=== PATIENT | female | born 1935 | race Caucasian/White ===

== ENCOUNTER 2017-03-11 10:44 | Emergency (ER) | payer MEDICARE, OTHER ==
[~2017-03-11] VITALS: Ht 162.6 cm; Wt 80.6 kg
[~2017-03-11 10:44] MED LIST: ADVIL200 MG PO; ALPRAZOLAM0.25 MG PO; AMITRIPTYLINE H25 MG PO; ASPIRIN EC81 MG PO; ATENOLOL25 MG PO; CITRACAL + BON1 EACH PO; COUMADIN2.5 MG PO; COUMADIN5 MG PO; DILTIAZEM ER180 MG PO; ENALAPRIL MALEA10 MG PO; ENALAPRIL MALEA20 MG PO; FUROSEMIDE20 MG PO; GABAPENTIN300 MG PO; LASIX20 MG PO; METOPROLOL SUCC50 MG PO; NORCO 5-325 TA1 EACH PO; POLYETHYLENE G255 GM PO; POTASSIUM CHLO20 ME1 PO; SENNA LAXATIVE8.6 MG PO; TOPROL XL25 MG PO; TRAMADOL HCL50 MG PO; VITAMIN B-121000 MCG PO; VITAMIN D1000 UNI1 PO; WARFARIN SODIUM5 MG PO
== END 2017-03-11 16:10 | disposition home or self-care (01) ==
LOC: ED 10:44
DX: R19.5 Other fecal abnormalities (principal); I10 Essential (primary) hypertension; I48.91 Unspecified atrial fibrillation; Z79.01 Long term (current) use of anticoagulants; Z90.49 Acquired absence of other specified parts of digestive tract; Z88.0 Allergy status to penicillin; Z79.899 Other long term (current) drug therapy
CPT/HCPCS: 74177; 80053; 85025; 99284; Q9967

== ENCOUNTER 2017-03-27 07:36 | Day surgery (SDC) | payer MEDICARE, OTHER ==
[~2017-03-27] VITALS: Ht 162.6 cm; Wt 80.3 kg
[2017-03-27] MEDS ORDERED: ASPIR-LOW81 MG PO (08:45)
--- NOTE | 2017-03-27 09:29 | NUR ---
03/27/17 0929 Ravinder Perkins RESPONDS TO VOICE ON ENTRY TO PACU. DENIES NAUSEA OR PAIN. ORIENTED TO TIME AND SITUATION. FALLS ASLEEP EASILY.
--- NOTE | 2017-03-28 08:35 | OR ---
[facility] [address], [place] [address] Signed DATE OF PROCEDURE: 03/27/17 PREOPERATIVE DIAGNOSES Personal history of colonic polyps, 2006 (hyperplastic). Father with a history of colon cancer, age 63. History of hemorrhoids. Rectal bleeding. Change in bowel habits with decreased caliber of stool, constipation and abdominal distention. Long redundant colon. POSTOPERATIVE DIAGNOSES Long redundant colon. Beefy moderate external hemorrhoids. Moderate internal hemorrhoids. Moderate sigmoid diverticulosis. PROCEDURE: Colonoscopy without biopsy. ESTIMATED BLOOD LOSS: None. INDICATIONS Phoebe is an 82-year-old female, who has been to us previously for colonoscopy in 2010. Back at that time, she was having generalized abdominal pain, bloating, nausea, constipation with personal history of hyperplastic colonic polyps removed in 2006. In addition, her father had colon cancer at age 63. At that time, we found that she had a very long redundant colon. Back in 2010, she had her upper GI and a CT scan performed and they were all negative. More recently, she went to the emergency room because of her change in bowel habits with abdominal distention, a decrease in caliber of her stool and some rectal bleeding. Her digital rectal exam was negative, a CT scan and pelvis was negative and her laboratory work was all negative. She has 2 small lesions in her kidney, she is going to follow up with her primary care provider. She had been to her primary care provider who then asked her to come see me in consultation. In the office, I had a long discussion with Phoebe. She wanted to undergo another colonoscopy. She is very aware of colonoscopy along with its risks including but not limited to gas bloating, crampy abdominal pain, bleeding, perforation requiring surgery, and misdiagnosis. She also understands the need for IV conscious sedation. We also asked her to hold both her aspirin and Coumadin. Unfortunately, she held the Coumadin but not the aspirin. She had expressed understanding and wished to proceed. PROCEDURE NOTE Phoebe was taken into our endoscopy suite and placed in the left lateral decubitus Electronically Signed By: SHELL GARCIA MD 03/28/17 0835 PATIENT NAME: PHOEBE CINTRON OPERATIVE REPORT DATE OF : 33 PHYSICIAN: SHELL GARCIA MD REPORT #: [id number] REPORT IS CONFIDENTIAL AND NOT TO BE RELEASED WITHOUT AUTHORIZATION [facility] [address], [place] [address] Signed position. She has a history of chronic atrial fibrillation, which we could see on her monitor. She was given 4 mg of Versed and 100 mcg of Fentanyl for the procedure. A digital rectal exam was performed and she does have some moderate circumferential external beefy hemorrhoids. She has good sphincter tone. The adult colonoscope was introduced and advanced very carefully all the way into the cecum under direct visualization of came r a without difficulty. Overall, prep was good. She had some areas of particulate stool matter that I could not quite suction out completely. The scope was then slowly withdrawn. She does have moderate sigmoid diverticulosis. The scope was then retroflexed in the rectum and she does have some moderate internal hemorrhoids. After this, the gas was suctioned out and the colonoscope removed. Phoebe tolerated the procedure quite well. RECOMMENDATIONS I will see Phoebe back in my office in 7-14 days to review her results. It looks like the hemorrhoids are the source of her decrease in caliber of stool with rectal bleeding, probably exacerbated by the constipation. MD DARREN Arellano/Modl /[id number] cc: Adalberto Narayanan MD Electronically Signed By: SHELL GARCIA MD 03/28/17 0835 PATIENT NAME: PHOEBE CINTRON OPERATIVE REPORT DATE OF : 33 PHYSICIAN: SHELL GARCIA MD REPORT #: [id number] REPORT IS CONFIDENTIAL AND NOT TO BE RELEASED WITHOUT AUTHORIZATION
== END 2017-03-27 10:14 | disposition home or self-care (01) ==
LOC: OPS 07:36 → DS 07:36 → OPS 09:45
PROVIDERS: Colon & Rectal Surgery
PROC: 0DJD8ZZ Inspection of Lower Intestinal Tract, Via Natural or Artificial Opening Endoscopic (ICD-10-PCS; principal; 2017-03-27 09:45)
DX: K64.8 Other hemorrhoids (principal); K64.4 Residual hemorrhoidal skin tags; K57.30 Diverticulosis of large intestine without perforation or abscess without bleeding; F41.9 Anxiety disorder, unspecified; Z79.899 Other long term (current) drug therapy; Z88.0 Allergy status to penicillin
CPT/HCPCS: J2250; J3010; J7120

== ENCOUNTER 2020-06-06 17:31 | Emergency (ER) | payer MEDICARE, OTHER ==
[~2020-06-06] VITALS: Ht 157.5 cm; Wt 80.3 kg
[~2020-06-06 17:31] MED LIST changes: +ASPIR-LOW81 MG PO; -COUMADIN5 MG PO; +FISH OIL 1,0001 EAC5 PO; +WOMEN'S DAILY1 EACH; +WOMEN'S DAILY1 EACH PO
--- OUTSIDE RECORDS SUMMARY | 2020-06-06 17:34 | XMS ---
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 Elvira has no Care Guidelines for this patient. Yamil VISIT COUNT (12 MO.) 1 [facility] TOTAL 1 NOTE: Visits indicate total known visits. ED/C VISIT TRACKING (12 MO.) 06/06/2020 17:32 [facility] [place] TYPE: Emergency COMPLAINT: - RAPID HEART RATE INPATIENT VISIT TRACKING (12 MO.) No inpatient visits to display in this time frame [id number]
[2020-06-06] MEDS ORDERED: CARDIZEM CD120 MG PO (19:16)
--- NOTE | 2020-06-07 17:03 | EKG ---
[facility] [address] [facility] [place] [address] Signed Supraventricular tachycardia Nonspecific ST and T wave abnormality Abnormal ECG When compared with ECG of 16-FEB-2016 11:41, Sinus rhythm has replaced Atrial flutter Vent. rate has increased BY [address] now depressed in Inferior leads ST no longer elevated in Lateral leads Confirmed by DEVI SHEPARD DO ([id number]) on 06/07/2020 5:03:35 PM Electronically Signed By: DEVI SHEPARD DO 06/07/20 1703 PATIENT NAME: PHOEBE CINTRON Electrocardiogram DATE OF : 33 PHYSICIAN: DEVI SHEPARD DO REPORT #: [id number] REPORT IS CONFIDENTIAL AND NOT TO BE RELEASED WITHOUT AUTHORIZATION
--- NOTE | 2020-06-07 17:04 | EKG ---
[facility] [address] [facility] [place] [address] Signed Atrial flutter with variable AV block Nonspecific T wave abnormality Abnormal ECG When compared with ECG of 06-JUN-2020 17:37, (Unconfirmed) Atrial flutter has replaced Sinus rhythm Vent. rate has decreased BY [address] no longer depressed in Inferior leads Nonspecific T wave abnormality has replaced inverted T waves in Lateral leads Confirmed by DEVI SHEPARD DO ([id number]) on 06/07/2020 5:03:43 PM Electronically Signed By: DEVI SHEPARD DO 06/07/20 1704 PATIENT NAME: PHOEBE CINTRON Electrocardiogram DATE OF : 33 PHYSICIAN: DEVI SHEPARD DO REPORT #: [id number] REPORT IS CONFIDENTIAL AND NOT TO BE RELEASED WITHOUT AUTHORIZATION
== END 2020-06-06 19:51 | disposition home or self-care (01) ==
LOC: ED 17:31
DX: I47.1 Supraventricular tachycardia (principal); I10 Essential (primary) hypertension; I48.91 Unspecified atrial fibrillation; Z88.0 Allergy status to penicillin; Z79.899 Other long term (current) drug therapy; Z79.01 Long term (current) use of anticoagulants; Z79.82 Long term (current) use of aspirin
CPT/HCPCS: 71045; 80053; 83735; 84443; 84484; 85025; 85730; 93005; 93010; 96374; 99285-25

== ENCOUNTER 2020-06-08 09:56 | Emergency (ER) | payer MEDICARE, OTHER ==
[~2020-06-08] VITALS: Ht 157.5 cm; Wt 80.3 kg
[~2020-06-08 09:56] MED LIST changes: +CARDIZEM CD120 MG PO
--- OUTSIDE RECORDS SUMMARY | 2020-06-08 10:00 | XMS ---
PreManage Notification: PHOEBE CINTRON Security Architect Manager Events No recent Security Events currently on file CRITERIA MET - [facility] - 2 Visits in 30 Days CARE PROVIDERS MARTÍNEZ PRICE Physician Track Repairer Helper 06/07/2020-Current PHONE: [phone] Elvira has no Care Guidelines for this patient. Yamil VISIT COUNT (12 MO.) 2 [facility] TOTAL 2 NOTE: Visits indicate total known visits. ED/UCC VISIT TRACKING (12 MO.) 06/08/2020 09:57 [facility] TYPE: Emergency COMPLAINT: - RAPID HEART RATE 06/06/2020 17:32 [facility] TYPE: Emergency COMPLAINT: - RAPID HEART RATE INPATIENT VISIT TRACKING (12 MO.) No inpatient visits to display in this time frame [email or web address]
--- NOTE | 2020-06-08 18:35 | EKG ---
[facility] [address] [facility] [place], [place] [address] Signed Atrial flutter with variable AV block Abnormal ECG No previous ECGs available Confirmed by DEVI SHEPARD DO ([id number]) on 06/08/2020 6:34:55 PM Electronically Signed By: DEVI SHEPARD DO 06/08/20 1835 PATIENT NAME: PHOEBE CINTRON Electrocardiogram DATE OF : 33 PHYSICIAN: DEVI SHEPARD DO REPORT #: [id number] REPORT IS CONFIDENTIAL AND NOT TO BE RELEASED WITHOUT AUTHORIZATION
== END 2020-06-08 13:43 | disposition home or self-care (01) ==
LOC: ED 09:56
DX: I48.91 Unspecified atrial fibrillation (principal); I48.92 Unspecified atrial flutter; I10 Essential (primary) hypertension; Z88.0 Allergy status to penicillin; Z79.899 Other long term (current) drug therapy; Z79.01 Long term (current) use of anticoagulants; Z79.82 Long term (current) use of aspirin
CPT/HCPCS: 71045; 80053; 83735; 83880; 84484; 85025; 85610; 93005; 93010; 96374; 99285-25

== ENCOUNTER 2020-07-03 11:17 | Emergency (ER) | payer MEDICARE, OTHER ==
[~2020-07-03] VITALS: Ht 157.5 cm; Wt 80.3 kg
[~2020-07-03 11:17] MED LIST changes: +ALPRAZOLAM0.5 MG PO; +TRAZODONE HCL50 MG PO
--- OUTSIDE RECORDS SUMMARY | 2020-07-03 11:20 | XMS ---
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 Care History Medical/Surgical 06/09/2020 [facility] - W CONTACTED DR SAUNDERS OFFICE- PATIENT BUSINESS SUPPORT PROFESSIONAL - BUSINESS SUPPORT PROFESSIONAL IS CURRENTLY WORKING ON AN APT FOR FOLLOW UP WITH PATIENT. - CHW PROVIDED RECENT ED VISIT CHART NOTES AT PHYSICIAN REQUEST. - FURTHER FOLLOW UP WILL BE DISCUSSED WITH PATIENT. Yamil VISIT COUNT (12 MO.) 3 [facility] TOTAL 3 NOTE: Visits indicate total known visits. ED/UCC VISIT TRACKING (12 MO.) 07/03/2020 11:18 [facility] TYPE: Emergency COMPLAINT: - RAPID HEART RATE 06/08/2020 09:57 [facility] TYPE: Emergency COMPLAINT: - RAPID HEART RATE DIAGNOSES: - Other exterminator helper (current) drug therapy - exterminator helper (current) use of aspirin - Allergy status to penicillin - Essential (primary) hypertension - exterminator helper (current) use of anticoagulants - Unspecified atrial fibrillation - Palpitations - Unspecified atrial flutter 06/06/2020 17:32 [facility] [place] TYPE: Emergency COMPLAINT: - RAPID HEART RATE DIAGNOSES: - Essential (primary) hypertension - retirement (current) use of anticoagulants - Allergy status to penicillin - exterminator helper (current) use of aspirin - Supraventricular tachycardia - Unspecified atrial fibrillation - Other halfway (current) drug therapy INPATIENT VISIT TRACKING (12 MO.) No inpatient visits to display in this time frame [email or web address]
[2020-07-03] MEDS ORDERED: METOPROLOL TART50 MG PO (11:40)
--- NOTE | 2020-07-03 13:36 | EKG ---
[facility] [address] [facility] [place] [address] Signed Atrial flutter with variable AV block Abnormal ECG When compared with ECG of 08-JUN-2020 10:02, Atrial flutter is noted in the previous EKGs Confirmed by ESTEBAN MARQUEZ MD ([id number]) on 07/03/2020 1:35:57 PM Electronically Signed By: ESTEBAN MARQUEZ MD 07/03/20 1336 PATIENT NAME: PHOEBE CINTRON Electrocardiogram DATE OF : 33 PHYSICIAN: ESTEBAN MARQUEZ MD REPORT #: [id number] REPORT IS CONFIDENTIAL AND NOT TO BE RELEASED WITHOUT AUTHORIZATION
--- NOTE | 2020-07-03 13:37 | EKG ---
[facility] [address] [facility] [place], [place] [address] Signed Atrial flutter with rapid ventricular response with variable AV Block Abnormal ECG When compared with ECG of 03-JUL-2020 11:23, (Unconfirmed) The ventricular rate has decreased. Confirmed by ESTEBAN MARQUEZ MD ([id number]) on 07/03/2020 1:37:06 PM Electronically Signed By: ESTEBAN MARQUEZ MD 07/03/20 1337 PATIENT NAME: PHOEBE CINTRON Electrocardiogram DATE OF : 33 PHYSICIAN: ESTEBAN MARQUEZ MD REPORT #: [id number] REPORT IS CONFIDENTIAL AND NOT TO BE RELEASED WITHOUT AUTHORIZATION
== END 2020-07-03 16:49 | disposition short-term general hospital (02) ==
LOC: ED 11:17
DX: I48.91 Unspecified atrial fibrillation (principal); I48.92 Unspecified atrial flutter; I10 Essential (primary) hypertension; Z88.0 Allergy status to penicillin; Z79.899 Other long term (current) drug therapy; Z79.01 Long term (current) use of anticoagulants; Z79.82 Long term (current) use of aspirin; Z20.822 Contact with and (suspected) exposure to COVID-19
CPT/HCPCS: 71045; 80053; 83735; 83880; 84484; 85025; 85610; 93005; 93010; 96374; 96376; 99285-25; C9803; U0003